=== PATIENT | male | born 1975 | race African-American/Black ===

== ENCOUNTER 2016-04-18 23:55 | Emergency (ER) | payer OTHER ==
[~2016-04-18] VITALS: Ht 190.5 cm; Wt 187.6 kg
[~2016-04-18 23:55] MED LIST: ADULT LOW DOSE81 MG PO; ADVIL,NUPRIN,M200 MG PO; ALBUTEROL SULF8.5 GM IH; ALLEGRA-D 121 TABLET PO; LIPITOR5 MG PO; LISINOPRIL10 MG PO; LOPRESSOR25 MG PO; MELOXICAM15 MG PO; MELOXICAM7.5 MG PO; MOBIC15 MG PO; MOBIC7.5 MG PO; MOTRIN600 MG PO; NAPROSYN500 MG PO; NOHOMEMEDS; NORCO 5/3251 TABLET PO; PEN-VEE K,VEET500 MG PO; PERCOCET 5/31 TABLET PO; PRINIVIL10 MG PO; PROAIR HFA8.5 GM IH; PROCARDIA10 MG PO; TESSALON PERLE100 MG PO; TRAMADOL HCL50 MG PO; ULTRAM50 MG PO
[2016-04-19 00:52] VITALS: BP 136/84
== END 2016-04-19 01:12 | disposition home or self-care (01) ==
LOC: EME 23:55 → EXP 23:55
PROC: 2W3EX1Z Immobilization of Right Hand using Splint (ICD-10-PCS; principal; 2016-04-18)
DX: S63.91XA Sprain of unspecified part of right wrist and hand, initial encounter (principal); S60.221A Contusion of right hand, initial encounter; W23.0XXA Caught, crushed, jammed, or pinched between moving objects, initial encounter; F17.200 Nicotine dependence, unspecified, uncomplicated; Z91.013 Allergy to seafood
CPT/HCPCS: 73110; 73130; 99281; 99284

== ENCOUNTER 2016-05-09 17:41 | Observation (INO) | payer OTHER ==
[~2016-05-09] VITALS: Ht 190.5 cm; Wt 186.5 kg
[2016-05-09] MEDS ORDERED: MOBIC15 MG PO (18:12)
[2016-05-09] MEDS ORDERED: LISINOPRIL20 MG PO (18:13)
[2016-05-09 19:42] LABS: HEMATOCRIT 38.5 % (38.0-50.0); MCH 24.8 PG (29.0-34.0); MCHC 32.5 G/DL (30.0-36.0); MCV 76.4 FL (86-99); MEAN PLAT.VOLUME 10.2 uM^3 (9.0-12.4); PLATELET COUNT 225 K/uL (156-360); RBC DIS.WIDTH-CV 15.6 % (11.8-14.6); RBC DIS.WIDTH-SD 41.9 % (39-53); RED BLOOD COUNT 5.04 M/uL (4.00-5.50); WHITE BLOOD COUNT 8.5 K/uL (4.1-10.2)
[2016-05-09 19:55] LABS: CHLORIDE 106 mEq/L (99-109); POTASSIUM 3.6 mEq/L (3.7-5.4); SODIUM 138 mEq/L (136-147)
[2016-05-09 19:56] LABS: GLUCOSE 209 mg/dL (70-99)
[2016-05-09 19:58] LABS: ANION GAP 6 MEQ/L (2-14)
[2016-05-09 20:00] LABS: GFR ESTIMATE (CALCULATED) > 59 mL/min/
[2016-05-09 20:01] LABS: UREA NITROGEN (BUN) 13 mg/dL (9-23)
[2016-05-09 20:02] LABS: TROP-I INTERPRETATION NEGATIVE; TROPONIN-I 0.03 ng/mL (0.0-0.30)
[2016-05-09 21:26] LABS: MAGNESIUM 1.9 mg/dL (1.3-2.7)
[2016-05-09] MEDS ORDERED: MOTRIN600 MG PO (22:40)
[2016-05-10 01:20] VITALS: BP 160/84
[2016-05-10 02:38] LABS: TROP-I INTERPRETATION NEGATIVE; TROPONIN-I 0.02 ng/mL (0.0-0.30)
[2016-05-10 03:38] LABS: HDL CHOLESTEROL 35 MG/DL (Desirable>=40); LDL CHOLESTEROL 110 mg/dL (Desirable<100); NON-HDL CHOLESTEROL 124 mg/dL (Desirable<160); TOTAL CHOLESTEROL 159 mg/dL (Desirable<200); TRIGLYCERIDES 69 MG/DL (Normal: <150)
[2016-05-10 08:10] VITALS: BP 118/74
[2016-05-10 08:40] LABS: TROP-I INTERPRETATION NEGATIVE; TROPONIN-I 0.02 ng/mL (0.0-0.30)
[2016-05-10 13:01] VITALS: BP 132/70
[2016-05-10] MEDS ORDERED: TYLENOL REGULA325 MG PO (14:14)
[2016-05-10] MEDS ORDERED: NITROSTAT0.4 MG SL (14:15)
[2016-05-10] MEDS ORDERED: HYDROCHLOROTHIA25 MG PO (14:15)
[2016-05-10] MEDS ORDERED: PANTOPRAZOLE SO40 MG PO (14:15)
[2016-05-11 07:30] LABS: Estimated Average Glucose 148 mg/dL (70-123); HEMOGLOBIN A1c (GLYCOHEMOGLOB) 6.8 % HGB (Below 5.7)
== END 2016-05-10 16:08 | disposition home or self-care (01) ==
LOC: EME 17:41 → EDOF 05-10 00:28 → 5WEST 05-10 01:14
PROVIDERS: Family Medicine
DX: R07.89 Other chest pain (principal); I10 Essential (primary) hypertension; R73.01 Impaired fasting glucose; F17.200 Nicotine dependence, unspecified, uncomplicated; E78.5 Hyperlipidemia, unspecified; E87.6 Hypokalemia; E66.01 Morbid (severe) obesity due to excess calories; Z68.43 Body mass index [BMI] 50.0-59.9, adult; Z82.49 Family history of ischemic heart disease and other diseases of the circulatory system; Z83.49 Family history of other endocrine, nutritional and metabolic diseases; Z91.013 Allergy to seafood; Z91.018 Allergy to other foods
CPT/HCPCS: 71020; 80048; 80061; 83036; 83735; 84484; 85027; 93005; 99281; 99285; G0378; J1644

== ENCOUNTER → 2016-05-18 | Outpatient (CLI) | payer OTHER ==
[~2016-05-18] MED LIST changes: +HYDROCHLOROTHIA25 MG PO; +LISINOPRIL20 MG PO; +NITROSTAT0.4 MG SL; +PANTOPRAZOLE SO40 MG PO; +TYLENOL REGULA325 MG PO
== END | disposition home or self-care (01) ==
LOC: NUC 09:07
DX: R07.9 Chest pain, unspecified (principal)
CPT/HCPCS: 78452; 78999; 93017; A9500; J2785

== ENCOUNTER 2017-04-28 22:30 | Emergency (ER) | payer SELFPAY ==
[~2017-04-28] VITALS: Ht 190.5 cm; Wt 187.9 kg
[2017-04-29] MEDS ORDERED: ULTRAM50 MG PO (03:29)
[2017-04-29 03:47] VITALS: BP 160/90
== END 2017-04-29 03:47 | disposition home or self-care (01) ==
LOC: EME 22:30
DX: S83.92XA Sprain of unspecified site of left knee, initial encounter (principal); X50.9XXA Other and unspecified overexertion or strenuous movements or postures, initial encounter; Y93.02 Activity, running; Y92.89 Other specified places as the place of occurrence of the external cause
CPT/HCPCS: 73564; 99281; 99283

== ENCOUNTER 2017-05-01 15:33 | Emergency (ER) | payer BC ==
[~2017-05-01] VITALS: Ht 190.5 cm; Wt 187.9 kg
[2017-05-01] MEDS ORDERED: MOBIC15 MG PO (16:44)
[2017-05-01] MEDS ORDERED: FLEXERIL10 MG PO (16:44)
[2017-05-01 17:03] VITALS: BP 156/88
== END 2017-05-01 17:04 | disposition home or self-care (01) ==
LOC: EME 15:33
DX: S83.92XA Sprain of unspecified site of left knee, initial encounter (principal); X58.XXXA Exposure to other specified factors, initial encounter; Z91.19 Patient's noncompliance with other medical treatment and regimen; I10 Essential (primary) hypertension; J45.909 Unspecified asthma, uncomplicated; F17.200 Nicotine dependence, unspecified, uncomplicated
CPT/HCPCS: 99281; 99283

== ENCOUNTER 2017-07-21 18:27 | Emergency (ER) | payer BC ==
[~2017-07-21] VITALS: Ht 190.5 cm; Wt 186.2 kg
[~2017-07-21 18:27] MED LIST changes: +FLEXERIL10 MG PO
[2017-07-21 18:36] VITALS: BP 175/108
[2017-07-21] MEDS ORDERED: NAPROSYN500 MG PO (23:41)
== END 2017-07-22 00:08 | disposition home or self-care (01) ==
LOC: EXP 18:27 → EME 18:27 → EXP 07-22 00:08
DX: S90.122A Contusion of left lesser toe(s) without damage to nail, initial encounter (principal); W22.03XA Walked into furniture, initial encounter; I10 Essential (primary) hypertension; F41.9 Anxiety disorder, unspecified; M19.90 Unspecified osteoarthritis, unspecified site; F17.200 Nicotine dependence, unspecified, uncomplicated
CPT/HCPCS: 73630; 99281; 99284

== ENCOUNTER 2017-08-29 16:18 | Observation (INO) | payer BC, OTHER ==
[~2017-08-29] VITALS: Ht 193 cm; Wt 187.5 kg
[2017-08-29 16:45] LABS: HEMATOCRIT 39.6 % (38.0-50.0); HEMOGLOBIN 12.7 G/DL (12.5-16.6); MCH 25.4 PG (29.0-34.0); MCHC 32.1 G/DL (30.0-36.0); MCV 79.2 FL (86-99); RBC DIS.WIDTH-SD 45.7 % (39-53); WHITE BLOOD COUNT 9.3 K/uL (4.1-10.2)
[2017-08-29 16:54] LABS: CHLORIDE 104 mEq/L (99-109); SODIUM 139 mEq/L (136-147)
[2017-08-29 16:55] LABS: GLUCOSE 115 mg/dL (70-99)
[2017-08-29 16:59] LABS: CREATININE 0.8 mg/dL (0.6-1.3); GFR ESTIMATE (CALCULATED) > 59 mL/min/ (58.99-99999)
[2017-08-29 17:00] LABS: UREA NITROGEN (BUN) 7 mg/dL (9-23)
[2017-08-29 17:07] LABS: TROP-I INTERPRETATION NEGATIVE; TROPONIN-I < 0.01 ng/mL (0.0-0.30)
[2017-08-29 17:53] LABS: PLAT.SUFFICIENCY ADEQUATE; PLATELET COUNT 277 K/uL (156-360)
[2017-08-29] MEDS ORDERED: KETOCONAZOLE60 GM TP (20:34)
[2017-08-29] MEDS ORDERED: NABUMETONE750 MG PO (20:35)
[2017-08-29 21:23] LABS: HDL CHOLESTEROL 42 MG/DL (Desirable>=40); LDL CHOLESTEROL 140 mg/dL (Desirable<100); NON-HDL CHOLESTEROL 150 mg/dL (Desirable<160); TOTAL CHOLESTEROL 192 mg/dL (Desirable<200); TRIGLYCERIDES 51 MG/DL (Normal: <150)
[2017-08-29 21:42] VITALS: BP 122/78
[2017-08-29 23:38] LABS: TROP-I INTERPRETATION NEGATIVE; TROPONIN-I < 0.01 ng/mL (0.0-0.30)
[2017-08-30 05:10] VITALS: BP 120/82
[2017-08-30 05:53] LABS: HEMOGLOBIN 11.9 G/DL (12.5-16.6); MCH 24.3 PG (29.0-34.0); MCHC 30.5 G/DL (30.0-36.0); MCV 79.6 FL (86-99); RBC DIS.WIDTH-CV 15.9 % (11.8-14.6); RBC DIS.WIDTH-SD 45.5 % (39-53); WHITE BLOOD COUNT 8.7 K/uL (4.1-10.2)
[2017-08-30 06:05] LABS: TROP-I INTERPRETATION NEGATIVE; TROPONIN-I < 0.01 ng/mL (0.0-0.30)
[2017-08-30 06:15] LABS: CHLORIDE 103 MEQ/L (99-109); CREATININE 0.9 MG/DL (0.6-1.3); GFR ESTIMATE (CALCULATED) > 59 mL/min/ (58.99-99999); POTASSIUM 4.1 MEQ/L (3.7-5.4); SODIUM 139 MEQ/L (136-147); UREA NITROGEN (BUN) 9 mg/dL (9-23)
[2017-08-30 06:18] LABS: GLUCOSE 180 mg/dL (70-99)
[2017-08-30 06:40] LABS: PLAT.SUFFICIENCY ADEQUATE; PLATELET COUNT UNABLE TO REPORT K/uL (156-360)
[2017-08-30 09:43] VITALS: BP 138/93
[2017-08-30 11:40] VITALS: BP 132/86
[2017-08-30] MEDS ORDERED: ATORVASTATIN CA20 MG PO (12:55)
[2017-08-30] MEDS ORDERED: PANTOPRAZOLE SO40 MG PO (12:56)
[2017-08-30 13:08] LABS: HEMOGLOBIN A1c (GLYCOHEMOGLOB) 6.9 % (Below 5.7)
== END 2017-08-30 14:15 | disposition home or self-care (01) ==
LOC: EME 16:18 → EXP 16:18 → EDOF 20:02 → 4SOUTH 20:02 → EDOF 20:02 → ENRESERV 20:09 → 4SOUTH 21:29
PROVIDERS: Nurse Practitioner Adult Health
DX: R07.89 Other chest pain (principal); I10 Essential (primary) hypertension; E11.65 Type 2 diabetes mellitus with hyperglycemia; E78.5 Hyperlipidemia, unspecified; E66.01 Morbid (severe) obesity due to excess calories; Z68.43 Body mass index [BMI] 50.0-59.9, adult; M19.90 Unspecified osteoarthritis, unspecified site; F17.200 Nicotine dependence, unspecified, uncomplicated; Z82.49 Family history of ischemic heart disease and other diseases of the circulatory system; J45.909 Unspecified asthma, uncomplicated; D64.9 Anemia, unspecified; Z79.82 Long term (current) use of aspirin; Z91.018 Allergy to other foods
CPT/HCPCS: 71046; 80048; 80061; 83036; 83880; 84484; 85027; 93005; 99281; 99285; G0378

== ENCOUNTER 2017-10-20 11:18 | Day surgery (SDC) | payer OTHER, BC ==
[~2017-10-20] VITALS: Ht 193 cm; Wt 185.0 kg
[~2017-10-20 11:18] MED LIST changes: +ATORVASTATIN CA20 MG PO; +KETOCONAZOLE60 GM TP; +NABUMETONE750 MG PO
[2017-10-20] MEDS ORDERED: DIOVAN HCT 81 TABLET PO (11:39)
[2017-10-20 11:40] VITALS: BP 139/90
[2017-10-20 16:00] VITALS: BP 141/83
== END 2017-10-20 16:25 | disposition home or self-care (01) ==
LOC: SDC 11:18
PROVIDERS: Orthopaedic Surgery Hand Surgery
DX: G56.01 Carpal tunnel syndrome, right upper limb (principal); M65.4 Radial styloid tenosynovitis [de Quervain]; M67.431 Ganglion, right wrist; W50.0XXA Accidental hit or strike by another person, initial encounter; Y93.F9 Activity, other caregiving; Y99.0 Civilian activity done for income or pay; I10 Essential (primary) hypertension; E11.9 Type 2 diabetes mellitus without complications; J45.909 Unspecified asthma, uncomplicated; K21.9 Gastro-esophageal reflux disease without esophagitis; R94.31 Abnormal electrocardiogram [ECG] [EKG]; F17.200 Nicotine dependence, unspecified, uncomplicated; Z91.018 Allergy to other foods; Z91.013 Allergy to seafood
CPT/HCPCS: 82948; J0131; J0690; J1885; J2250; J2405; J3010; S0020